=== PATIENT | male | born 2005 | race Two or more races ===

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

== ENCOUNTER 2023-03-03 10:24 | Emergency (ER) | payer OTHER, SELFPAY ==
--- NOTE | ~2023-03-03 | CT_ITS ---
EXAMINATION: CT brain wo con INDICATION: Headache COMPARISON: 08/22/2019 TECHNIQUE: Standard unenhanced head CT. The dose-length product (DLP) was 605.33 mGy-cm. The mA was a djusted according to patient size. Iterative reconstruction technique was employed. FINDINGS: There is no intracranial hemorrhage, acute infarction, or abnormal mass lesion. The ventric les are normal. There is no abnormal mass effect or midline shift. The chin-white matter differentiat ion is normal. The basal cisterns are patent. The orbits are normal. The paranasal sinuses, mastoids and calvarium are normal. IMPRESSION: 1. No acute intracranial abnormality. Reviewed, dictated and finalized at location L.
--- NOTE | ~2023-03-03 | CT_ITS ---
EXAMINATION: CT cervical spine wo con DATE: 03/03/2023 11:39 INDICATION: Neck pain TECHNIQUE: Computed tomography (CT) of the cervical spine was performed without intravenous contrast. The dose-length product (DLP) was 255.35 mGy-cm. Automated exposure control and iterative reconstruc tion technique were employed. COMPARISON: None FINDINGS: Bone alignment is normal. There is no fracture. The vertebral body heights and intervertebr al disc spaces are maintained. The odontoid process is intact. The prevertebral soft tissues are norm al. IMPRESSION: 1. No acute osseous abnormality. Reviewed, dictated and finalized at location L.
--- NOTE | ~2023-03-03 | CT_ITS ---
EXAMINATION: CT thoracic lumbar wo con DATE: 03/03/2023 11:40 INDICATION: Back pain TECHNIQUE: Computed tomography (CT) of the thoracic and lumbar spine was performed without intravenou s contrast. The dose-length product (DLP) was 475.47 mGy-cm. Iterative reconstruction was used. COMPARISON: None FINDINGS: Thoracic spine: No fracture, dislocation, or subluxation. The vertebral body heights, alignment, and intervertebral disc spaces are normal. The paravertebral soft tissues are unremarkable. Lumbar spine: No fracture, dislocation, or subluxation. There is minimal loss of posterior vertebral body height at L5 without evidence of linear sclerosis or lucency to suggest acute fracture. The vert ebral body alignment and intervertebral disc spaces are normal. The paravertebral soft tissues are un remarkable. IMPRESSION: 1. Unremarkable thoracic spine. 2. Minimal loss of posterior vertebral body height at L5 without findings to suggest acute fracture. Reviewed, dictated and finalized at location L. IMPRESSION: 1. Unremarkable thoracic spine. 2. Minimal loss of posterior vertebral body height at L5 without findings to hancock ggest acute fracture.
[2023-03-03 10:27] VITALS: BP 116/61; PULSE 78; RESP 18; TEMP 36.6; O2SAT 100
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
[2023-03-03] MEDS: ACETAMINOPHEN 500 MG TABLET 1000 MG PO (11:55)
[2023-03-03 14:18] VITALS: BP 120/70; PULSE 80; RESP 18; TEMP 36.7; O2SAT 100
== END 2023-03-03 14:23 | disposition home or self-care (01) ==
PROVIDERS: Emergency Provider Physician Assistant; PCP Family Medicine
DX: S16.1XXA Strain of muscle, fascia and tendon at neck level, initial encounter (principal); R51.9 Headache, unspecified; J45.909 Unspecified asthma, uncomplicated; K21.9 Gastro-esophageal reflux disease without esophagitis; V49.40XA Driver injured in collision with unspecified motor vehicles in traffic accident, initial encounter
CPT/HCPCS: 70450; 72125; 72128; 72131; 99284; A9270